=== PATIENT | female | born 1990 | race Caucasian/White ===

== ENCOUNTER 2018-05-14 07:59 | Emergency (ER) | payer BC, MEDICAID ==
[~2018-05-14] VITALS: Ht 165.1 cm; Wt 87.0 kg
[2018-05-14] MEDS ORDERED: DEXAMETHASONE 10 MG/ML VIAL IV ONE (08:30)
[2018-05-14] MEDS ORDERED: DIPHENHYDRAMINE 50MG/ML VIAL IV ONE (08:30)
[2018-05-14] MEDS ORDERED: FAMOTIDINE 20MG/2ML VIAL IV ONE (08:30)
[2018-05-14 11:04] VITALS: BP 108/71
== END 2018-05-14 11:24 | disposition home or self-care (01) ==
LOC: ER 07:59
DX: T78.40XA Allergy, unspecified, initial encounter (principal); X58.XXXA Exposure to other specified factors, initial encounter
CPT/HCPCS: 96374; 96375; 99284; J1100; J1200; J3490